=== PATIENT | female | born 1955 | race Caucasian/White ===

== ENCOUNTER 2018-12-06 13:33 | Emergency (ER) | payer MEDICARE, OTHER ==
[2018-12-06] MEDS ORDERED: ONDANSETRON HCL/PF 4 MG/ 2ML VIAL ONE (13:45)
[2018-12-06] MEDS ORDERED: NORMAL SALINE 1,000 ML IV.SOLN IV ONE (13:45)
[2018-12-06] MEDS ORDERED: DIPH,PERTUSS(ACELL),TET VAC/PF 0.5 ML DISP.SYRIN IM ONE (13:45)
[2018-12-25 11:49] LABS: eGFR (Non-African) > 60
[2018-12-25 11:50] LABS: BASOPHILS % 0.5 % (0.0-1.5); NEUTROPHILS # 3.4 # k/uL (1.4-7.7)
[2018-12-25 12:15] LABS: APPEARANCE,URINE CLEAR (CLEAR); COLOR,URINE YELLOW (YELLOW); OCCULT BLOOD,URINE NEGATIVE (NEGATIVE); PH URINE 6.5 (5.0 - 8.0); UROBILINOGEN URINE 0.2 Eu (0.2-1.0)
--- NOTE | 2019-01-27 10:15 | Diagnostic Imaging Report ---
KIEL CALDERON [facility] [address] [facility].[address] [id number] Report Submission Date: Dec 06, 2018 2:23:38 PM CDT Patient Study Name: JOSEPHINE MOLINA Date: Dec 06, 2018 2:00:49 PM CDT Modality Type: DX Gender: F Description: CHEST 1VIEW : 51 Institution: [facility] Physician: KIEL CALDERON Exam: AP chest. History: Syncope. No previous studies are available for comparison. Lung alexander are well aerated without mitzi consolidation or effusion. Heart and mediastinal contour are normal. No bony abnormalities are identified. Impression: No mitzi consolidation or effusion. Electronically signed on Dec 06, 2018 2:23:38 PM CDT by: Hira TROTTER
== END 2018-12-06 15:25 ==
LOC: ED 13:33
DX: S09.90XA Unspecified injury of head, initial encounter (principal); W01.0XXA Fall on same level from slipping, tripping and stumbling without subsequent striking against object, initial encounter; Y93.01 Activity, walking, marching and hiking; Y92.9 Unspecified place or not applicable; Y99.8 Other external cause status
CPT/HCPCS: 12011; 36415; 71045; 80053; 81002; 84484; 85025; 87086; 90471; 90715; 93005; 96374; 99283; 99284; J2405; J7030